=== PATIENT | female | born 1940 | race Caucasian/White ===

== ENCOUNTER 2023-04-25 17:22 | Inpatient (IN) | payer MEDICARE, OTHER ==
[~2023-04-25] VITALS: Ht 165.1 cm; Wt 60.8 kg
[2023-04-25] MEDS ORDERED: METO-358 PO (18:25)
[2023-04-25] MEDS ORDERED: DOCU100C36 PO (18:25)
[2023-04-25] MEDS ORDERED: NA P133E RC (18:25)
[2023-04-25] MEDS ORDERED: BISA10SU11 RC (18:25)
[2023-04-25] MEDS ORDERED: MULT-213 PO (18:25)
[2023-04-25] MEDS ORDERED: GABA-532 PO (18:25)
[2023-04-25] MEDS ORDERED: LEVO175T7 PO (18:25)
[2023-04-25] MEDS ORDERED: BUSP10TA35 PO (18:25)
[2023-04-25] MEDS ORDERED: MAGN400O6 PO (18:25)
[2023-04-25] MEDS ORDERED: ACET-868 PO (18:25)
[2023-04-25] MEDS ORDERED: VIT1CAPS44 PO (18:25)
[2023-04-25] MEDS ORDERED: TRAZ-257 PO (18:25)
[2023-04-25 19:02] LABS: BASOPHILS % (AUTO) 0.4 % (0.0-2.0); EOSINOPHILS # (AUTO) 0.1 K/uL (0.0-0.7); HEMATOCRIT 36 % (33-45); HEMOGLOBIN 12.2 g/dL (11.5-14.8); LYMPHOCYTES # (AUTO) 0.8 K/uL (0.8-4.8); LYMPHOCYTES % (AUTO) 10.7 % (20.0-44.0); MEAN CORPUSCULAR HEMOGLOBIN 31 PG (26.0-33.0); MEAN CORPUSCULAR HGB CONC 34 g/dl (31.0-36.0); MEAN CORPUSCULAR VOLUME 91 fL (82-100); MONOCYTES # (AUTO) 0.4 K/uL (0.1-1.30); MONOCYTES % (AUTO) 5.6 % (2.0-12.0); NEUTROPHILS # (AUTO) 6.1 K/uL (1.8-8.9); NEUTROPHILS % (AUTO) 82.3 % (43.0-81.0); PLATELET COUNT (AUTO) 223 K/uL (150-450); RED BLOOD CELL COUNT(AUTO) 4.01 MIL/uL (4.0-5.2); WHITE BLOOD COUNT (AUTO) 7.4 K/uL (4.3-11.0)
[2023-04-25 19:23] LABS: CALCIUM, SERUM 9.7 mg/dL (8.5-10.1); CARBON DIOXIDE 27 mmol/L (21-32); CHLORIDE 101 mmol/L (98-107); CREATININE 0.9 mg/dL (0.6-1.3); GLUCOSE 107 mg/dL (74-106); POTASSIUM 3.9 mmol/L (3.5-5.1); SODIUM SERUM 138 mmol/L (136-145); UREA NITROGEN, BLOOD 19 mg/dL (7-18)
[2023-04-25 19:38] LABS: ALANINE AMINOTRANSFERASE 16 U/L (12-78); ALBUMIN 3.7 g/dL (3.4-5.0); ALKALINE PHOSPHATASE 71 U/L (46-116); ASPARTATE AMINOTRANSFERASE 19 U/L (15-37); BILIRUBIN,DIRECT 0.1 mg/dL (0.0-0.2); BILIRUBIN,TOTAL 0.5 mg/dL (0.2-1.0); NT-PRO BNP 1078 pg/mL (0-125); TOTAL PROTEIN, SERUM 6.9 g/dL (6.4-8.2)
[2023-04-25] MEDS ORDERED: Z GUARD REMEDY 4 OZ OINT TP PRN (21:30)
[2023-04-25] MEDS ORDERED: MORPHINE SULFATE INJ 2 MG/ML DISP.SYRIN IV PRN (21:30)
[2023-04-25] MEDS ORDERED: ONDANSETRON HCL/PF 4 MG/2 ML VIAL IVP PRN (21:30)
[2023-04-25] MEDS ORDERED: hydrALAZINE HCL IV 20 MG VIAL IV PRN (21:30)
[2023-04-25 22:40] VITALS: BP 121/68; TEMP 98.6; O2SAT 96
[2023-04-26] VITALS (7 sets, daily range): BP systolic 91–147; BP diastolic 56–90; TEMP 97.6–98.4; O2SAT 96–99
[2023-04-26] MEDS: LEVOTHYROXINE SODIUM 175 MCG TABLET PO SCH (07:45)
[2023-04-26] MEDS: HEPARIN SODIUM, PORCINE 5000 UNITS/1 ML VIAL SQ SCH (09:00)
[2023-04-26] MEDS: METOPROLOL SUCCINATE 50 MG TAB.SR.24H PO SCH (09:00)
[2023-04-26] MEDS: POLYETHYLENE GLYCOL 3350 17 GM POWD.PACK PO SCH (09:00)
[2023-04-26] MEDS: DOCUSATE SODIUM LIQ 100 MG/10 ML UDC PO SCH (09:00)
[2023-04-26] MEDS: GABAPENTIN 100 MG CAPSULE PO SCH (09:00)
[2023-04-26] MEDS: busPIRone 5 MG TABLET PO SCH (09:00)
[2023-04-26] MEDS: TRAZODONE 50 MG TABLET PO SCH (21:24)
[2023-04-27] VITALS: BP 132/70; TEMP 98.1; O2SAT 99
[2023-04-27 04:00] VITALS: BP 139/76; TEMP 98.2; O2SAT 99
[2023-04-27 07:00] VITALS: BP_SYST 121; BP_SYST 129; BP_DIAS 104; BP_DIAS 77; TEMP 98.4; TEMP 98.6; O2SAT 96; O2SAT 97
[2023-04-27 12:00] VITALS: BP 119/66; TEMP 98.4; O2SAT 97
[2023-04-27 16:00] VITALS: BP 131/72; TEMP 98.2; O2SAT 98
[2023-04-27 20:00] VITALS: BP 124/80; TEMP 97.7; O2SAT 96
[2023-04-27] MEDS: ACETAMINOPHEN 325 MG TABLET PO PRN (23:34)
[2023-04-28 07:00] VITALS: BP 131/86; TEMP 97.5; O2SAT 97
[2023-04-28 16:00] VITALS: BP 152/79; TEMP 97.2
[2023-04-28 20:00] VITALS: BP 151/87; TEMP 97.9; O2SAT 96
[2023-04-29 08:00] VITALS: BP 133/78; TEMP 98; O2SAT 96
[2023-04-29 09:27] VITALS: BP 133/78
== END 2023-04-29 14:36 | DRG 641 ==
LOC: ER 17:40 → TELE 22:06 → MED 04-27 16:38
PROVIDERS: ADMIT Internal Medicine; ATTEND Nurse Practitioner Acute Care
DX: E86.0 Dehydration (principal); G93.40 Encephalopathy, unspecified; F03.94 Unspecified dementia, unspecified severity, with anxiety; R55 Syncope and collapse; I48.91 Unspecified atrial fibrillation; I10 Essential (primary) hypertension; W19.XXXA Unspecified fall, initial encounter; Y92.129 Unspecified place in nursing home as the place of occurrence of the external cause; Z87.11 Personal history of peptic ulcer disease; K21.9 Gastro-esophageal reflux disease without esophagitis; E03.9 Hypothyroidism, unspecified; Z79.890 Hormone replacement therapy; Z79.899 Other long term (current) drug therapy; Z91.81 History of falling; R79.89 Other specified abnormal findings of blood chemistry; S00.03XA Contusion of scalp, initial encounter
CPT/HCPCS: 36415; 70450-TC; 70486-TC; 71045-TC; 72125-TC; 80048-TC; 80076-TC; 82962-TC; 83605-TC; 83880; 84484-TC; 85025-TC; 87081-TC; 93307-TC; 97110-TC; 97112-TC; 97116-TC; 97530-TC; 97535-TC; G0378; J1644

== ENCOUNTER 2023-12-21 00:31 | Inpatient (IN) | payer MEDICARE, OTHER ==
[~2023-12-21] VITALS: Ht 165.1 cm; Wt 54.7 kg
[~2023-12-21 00:31] MED LIST: ACET-868 PO; BISA10SU11 RC; BUSP10TA35 PO; DOCU100C36 PO; GABA-532 PO; LEVO175T7 PO; MAGN400O6 PO; METO-358 PO; MULT-213 PO; NA P133E RC; TRAZ-257 PO; VIT1CAPS44 PO
[2023-12-21] MEDS: IV NS 0.9% 1,000 ML BAG IV ONE (01:43)
[2023-12-21 01:52] LABS: BASOPHILS % (AUTO) 0.7 % (0.0-2.0); EOSINOPHILS % (AUTO) 0.5 % (0.0-6.0); HEMATOCRIT 33 % (33-45); HEMOGLOBIN 10.8 g/dL (11.5-14.8); LYMPHOCYTES # (AUTO) 1.4 K/uL (0.8-4.8); MEAN CORPUSCULAR HEMOGLOBIN 27 PG (26.0-33.0); MEAN CORPUSCULAR HGB CONC 33 g/dl (31.0-36.0); MEAN CORPUSCULAR VOLUME 82 fL (82-100); MONOCYTES # (AUTO) 0.8 K/uL (0.1-1.30); MONOCYTES % (AUTO) 15.7 % (2.0-12.0); NEUTROPHILS # (AUTO) 2.8 K/uL (1.8-8.9); NEUTROPHILS % (AUTO) 56.1 % (43.0-81.0); PLATELET COUNT (AUTO) 285 K/uL (150-450); RED BLOOD CELL COUNT(AUTO) 3.99 MIL/uL (4.0-5.2); RED CELL DISTRIBUTION WIDTH 15.7 % (11.5-15.0); WHITE BLOOD COUNT (AUTO) 5.1 K/uL (4.3-11.0)
[2023-12-21 02:06] LABS: CALCIUM, SERUM 9.1 mg/dL (8.5-10.1); CARBON DIOXIDE 28 mmol/L (21-32); CHLORIDE 104 mmol/L (98-107); GLUCOSE 107 mg/dL (74-106); SODIUM SERUM 141 mmol/L (136-145); UREA NITROGEN, BLOOD 29 mg/dL (7-18)
[2023-12-21 02:12] LABS: ALANINE AMINOTRANSFERASE 8 U/L (12-78); ALBUMIN 3.1 g/dL (3.4-5.0); ALKALINE PHOSPHATASE 71 U/L (46-116); ASPARTATE AMINOTRANSFERASE 10 U/L (15-37); BILIRUBIN,DIRECT 0.1 mg/dL (0.0-0.2); BILIRUBIN,TOTAL 0.3 mg/dL (0.2-1.0); LIPASE 40 U/L (16-77); TOTAL PROTEIN, SERUM 7.9 g/dL (6.4-8.2)
[2023-12-21 02:18] LABS: EOSINOPHILS % (MANUAL) 1 % (0-4); LYMPHOCYTES % (MANUAL) 23 % (16-48); MONOCYTES % (MANUAL) 16 % (0-11.0); NEUTROPHILS % (MANUAL) 60 (42-76); PLATELET ESTIMATE ADEQUATE
[2023-12-21] MEDS ORDERED: ACETAMINOPHEN 325 MG TABLET PO PRN (03:00)
[2023-12-21] MEDS ORDERED: BISACODYL SUPP (10 MG) 10 MG/SUPP.RECT SUPP.RECT RC PRN (03:00)
[2023-12-21] MEDS ORDERED: ONDANSETRON HCL/PF 4 MG/2 ML VIAL IVP PRN (03:00)
[2023-12-21] MEDS ORDERED: MAGNESIUM HYDROXIDE 30 ML UDC PO PRN (03:00)
[2023-12-21] MEDS ORDERED: MAG HYDROX/AL HYDROX/SIMETH 30 ML UDC PO PRN (03:00)
[2023-12-21] MEDS ORDERED: Z GUARD REMEDY 4 OZ OINT TP PRN (03:00)
[2023-12-21] MEDS: IV NS 0.9% 1,000 ML IV ONE (03:55)
[2023-12-21 04:00] VITALS: BP 100/59; TEMP 98.8; O2SAT 97
[2023-12-21] MEDS: LEVOTHYROXINE SODIUM 175 MCG TABLET PO SCH (07:30)
[2023-12-21 08:00] VITALS: BP 122/70; TEMP 97.7; O2SAT 95
[2023-12-21] MEDS: DOCUSATE SODIUM 100 MG CAPSULE PO SCH (08:17)
[2023-12-21] MEDS: GABAPENTIN 100 MG CAPSULE PO SCH (08:17)
[2023-12-21] MEDS: busPIRone 5 MG TABLET PO SCH (08:17)
[2023-12-21] MEDS: MULTIVITAMIN/LUTEIN/MINERALS 1 TAB PO SCH (08:17)
[2023-12-21] MEDS: MULTIVIT W/MINERALS 1 TAB TABLET PO SCH (08:17)
[2023-12-21] MEDS: PANTOPRAZOLE 40 MG VIAL IV SCH (08:30)
[2023-12-21] MEDS ORDERED: BUSP30TA2 PO (08:55)
[2023-12-21] MEDS ORDERED: LEVO200T8 PO (08:55)
[2023-12-21] MEDS ORDERED: FERR325T28 PO (08:55)
[2023-12-21 12:00] VITALS: BP 100/65; TEMP 98.8; O2SAT 97
[2023-12-21 20:00] VITALS: BP 114/81; TEMP 99; O2SAT 99
[2023-12-21] MEDS: TRAZODONE 50 MG TABLET PO SCH (22:00)
[2023-12-22 04:00] VITALS: BP 117/65; TEMP 98.1; O2SAT 99
[2023-12-22 07:06] LABS: BASOPHILS % (AUTO) 0.6 % (0.0-2.0); EOSINOPHILS # (AUTO) 0.1 K/uL (0.0-0.7); EOSINOPHILS % (AUTO) 2.4 % (0.0-6.0); HEMATOCRIT 31 % (33-45); HEMOGLOBIN 10.4 g/dL (11.5-14.8); LYMPHOCYTES # (AUTO) 1.4 K/uL (0.8-4.8); LYMPHOCYTES % (AUTO) 42.9 % (20.0-44.0); MEAN CORPUSCULAR HEMOGLOBIN 27 PG (26.0-33.0); MEAN CORPUSCULAR HGB CONC 34 g/dl (31.0-36.0); MEAN CORPUSCULAR VOLUME 82 fL (82-100); MONOCYTES # (AUTO) 0.4 K/uL (0.1-1.30); NEUTROPHILS # (AUTO) 1.4 K/uL (1.8-8.9); NEUTROPHILS % (AUTO) 41.1 % (43.0-81.0); PLATELET COUNT (AUTO) 265 K/uL (150-450); RED BLOOD CELL COUNT(AUTO) 3.81 MIL/uL (4.0-5.2); RED CELL DISTRIBUTION WIDTH 15.5 % (11.5-15.0); WHITE BLOOD COUNT (AUTO) 3.3 K/uL (4.3-11.0)
[2023-12-22 07:24] LABS: CARBON DIOXIDE 25 mmol/L (21-32); CHLORIDE 106 mmol/L (98-107); CREATININE 0.8 mg/dL (0.6-1.3); GLUCOSE 84 mg/dL (74-106); POTASSIUM 3.6 mmol/L (3.5-5.1); SODIUM SERUM 142 mmol/L (136-145); UREA NITROGEN, BLOOD 20 mg/dL (7-18)
[2023-12-22] MEDS ORDERED: IV NS 0.9% 1,000 ML IV PRN (10:30)
[2023-12-22 12:25] VITALS: BP 100/59; TEMP 98.8; O2SAT 97
[2023-12-22 20:00] VITALS: BP 111/62; TEMP 98.1; O2SAT 95
[2023-12-23 04:00] VITALS: BP 103/67; TEMP 98.8; O2SAT 95
[2023-12-23 08:00] VITALS: BP 127/80; TEMP 97.9; O2SAT 96
[2023-12-23 20:00] VITALS: BP 114/69; TEMP 98; O2SAT 95
[2023-12-24 07:19] LABS: BASOPHILS % (AUTO) 0.5 % (0.0-2.0); EOSINOPHILS # (AUTO) 0.1 K/uL (0.0-0.7); EOSINOPHILS % (AUTO) 3.1 % (0.0-6.0); HEMATOCRIT 30 % (33-45); LYMPHOCYTES # (AUTO) 1.5 K/uL (0.8-4.8); LYMPHOCYTES % (AUTO) 40.6 % (20.0-44.0); MEAN CORPUSCULAR HEMOGLOBIN 27 PG (26.0-33.0); MEAN CORPUSCULAR HGB CONC 33 g/dl (31.0-36.0); MEAN CORPUSCULAR VOLUME 81 fL (82-100); MONOCYTES # (AUTO) 0.5 K/uL (0.1-1.30); MONOCYTES % (AUTO) 12.9 % (2.0-12.0); NEUTROPHILS # (AUTO) 1.6 K/uL (1.8-8.9); NEUTROPHILS % (AUTO) 42.9 % (43.0-81.0); PLATELET COUNT (AUTO) 253 K/uL (150-450); RED BLOOD CELL COUNT(AUTO) 3.73 MIL/uL (4.0-5.2); RED CELL DISTRIBUTION WIDTH 15.1 % (11.5-15.0); WHITE BLOOD COUNT (AUTO) 3.7 K/uL (4.3-11.0)
[2023-12-24 07:31] LABS: CALCIUM, SERUM 9.7 mg/dL (8.5-10.1); CARBON DIOXIDE 27 mmol/L (21-32); CHLORIDE 105 mmol/L (98-107); CREATININE 0.7 mg/dL (0.6-1.3); GLUCOSE 101 mg/dL (74-106); POTASSIUM 3.6 mmol/L (3.5-5.1); SODIUM SERUM 141 mmol/L (136-145); UREA NITROGEN, BLOOD 24 mg/dL (7-18)
[2023-12-24 08:00] VITALS: BP 122/68; TEMP 97.5; O2SAT 97
[2023-12-24] MEDS: PANTOPRAZOLE 40 MG TABLET.DR PO SCH (08:07)
== END 2023-12-24 19:00 | DRG 640 ==
LOC: ER 00:46 → MEDSG1 02:44
PROVIDERS: ADMIT Internal Medicine; ATTEND Nurse Practitioner Acute Care
DX: E86.0 Dehydration (principal); E43 Unspecified severe protein-calorie malnutrition; G93.41 Metabolic encephalopathy; N17.0 Acute kidney failure with tubular necrosis; F03.93 Unspecified dementia, unspecified severity, with mood disturbance; R62.7 Adult failure to thrive; E87.1 Hypo-osmolality and hyponatremia; I11.0 Hypertensive heart disease with heart failure; I50.9 Heart failure, unspecified; Z87.11 Personal history of peptic ulcer disease; I48.91 Unspecified atrial fibrillation; F41.9 Anxiety disorder, unspecified; Z79.890 Hormone replacement therapy; Z79.899 Other long term (current) drug therapy; E86.1 Hypovolemia; E88.09 Other disorders of plasma-protein metabolism, not elsewhere classified; E03.9 Hypothyroidism, unspecified; F32.9 Major depressive disorder, single episode, unspecified; D63.8 Anemia in other chronic diseases classified elsewhere
CPT/HCPCS: 36415; 71045-TC; 80048-TC; 80076-TC; 83690-TC; 85025-TC; 92526; 92611-TC; A4223; G0378; J2470; J7030

== ENCOUNTER 2024-12-04 20:13 | Emergency (ER) | payer MEDICARE, OTHER ==
[~2024-12-04] VITALS: Ht 160 cm; Wt 54.4 kg
[~2024-12-04 20:13] MED LIST changes: -BUSP10TA35 PO; +BUSP30TA2 PO; +FERR325T28 PO; +FLUO15CR2 TP; -LEVO175T7 PO; +LEVO200T8 PO; -MAGN400O6 PO
[2024-12-04 21:43] VITALS: BP 130/87; TEMP 98.5; O2SAT 93
[2024-12-04 22:36] LABS: PLATELET COUNT (AUTO) 187 K/uL (150-450); RED BLOOD CELL COUNT(AUTO) 3.73 MIL/uL (4.0-5.2); RED CELL DISTRIBUTION WIDTH 17.2 % (11.5-15.0); WHITE BLOOD COUNT (AUTO) 10.6 K/uL (4.3-11.0)
[2024-12-04 22:42] LABS: CALCIUM, SERUM 9.1 mg/dL (8.5-10.1); CREATININE 1.0 mg/dL (0.6-1.3); SODIUM SERUM 139 mmol/L (136-145); UREA NITROGEN, BLOOD 34 mg/dL (7-18)
[2024-12-04 22:54] LABS: ASPARTATE AMINOTRANSFERASE 20 U/L (15-37); NT-PRO BNP 3532 pg/mL (0-125); TOTAL PROTEIN, SERUM 7.3 g/dL (6.4-8.2)
== END 2024-12-05 01:39 ==
LOC: ER 20:21
DX: Z00.8 Encounter for other general examination (principal); I10 Essential (primary) hypertension; F03.94 Unspecified dementia, unspecified severity, with anxiety; R07.9 Chest pain, unspecified; R06.02 Shortness of breath; Z79.899 Other long term (current) drug therapy; Z87.11 Personal history of peptic ulcer disease; Z95.0 Presence of cardiac pacemaker; Z86.79 Personal history of other diseases of the circulatory system; Z20.822 Contact with and (suspected) exposure to COVID-19
CPT/HCPCS: 36415; 71045-TC; 80048-TC; 80076-TC; 83880; 84484-TC; 85025-TC

== ENCOUNTER 2024-12-08 18:34 | Inpatient (IN) | payer MEDICARE, OTHER ==
[~2024-12-08] VITALS: Ht 167.6 cm; Wt 72.6 kg
[2024-12-08] MEDS ORDERED: BUDE0.5A4 IH (19:53)
[2024-12-08] MEDS ORDERED: BUSP15TA3 PO (19:53)
[2024-12-08] MEDS ORDERED: CHOLECALCIFEROL PO (19:53)
[2024-12-08] MEDS ORDERED: MAGN400O6 PO (19:53)
[2024-12-08] MEDS ORDERED: TRAZ-182 PO (19:53)
[2024-12-08] MEDS: IV NS 0.9% 500 ML BAG IV ONE (19:57)
[2024-12-08 20:20] LABS: PLATELET COUNT (AUTO) 210 K/uL (150-450); RED BLOOD CELL COUNT(AUTO) 3.84 MIL/uL (4.0-5.2); RED CELL DISTRIBUTION WIDTH 16.8 % (11.5-15.0); WHITE BLOOD COUNT (AUTO) 6.2 K/uL (4.3-11.0)
[2024-12-08 20:28] LABS: CALCIUM, SERUM 8.7 mg/dL (8.5-10.1); CREATININE 0.7 mg/dL (0.6-1.3); SODIUM SERUM 138 mmol/L (136-145); UREA NITROGEN, BLOOD 26 mg/dL (7-18)
[2024-12-08 20:34] LABS: ASPARTATE AMINOTRANSFERASE 19 U/L (15-37); TOTAL PROTEIN, SERUM 7.3 g/dL (6.4-8.2)
[2024-12-08 20:37] LABS: INR 1.07 (0.91-1.10); LACTIC ACID 1.1 mmol/L (0.4-2.0)
[2024-12-08 20:43] LABS: SERUM AMMONIA 32 umol/L (11-32)
[2024-12-08 20:58] LABS: APPEARANCE,URINE TURBID (CLEAR); BLOOD, URINE 1+ Ery/uL (NEGATIVE); LEUKOCYTE ESTERASE ,URINE 3+ (NEGATIVE); NITRITE, URINE POSITIVE (NEGATIVE); UGLUCOSE NEGATIVE (NEGATIVE)
[2024-12-08 21:04] LABS: ADD URINE CULTURE YES; SQUAMOUS EPITHELIAL CELL,UR 0-2 /HPF (None Seen)
[2024-12-08] MEDS ORDERED: MAGNESIUM HYDROXIDE 30 ML UDC PO PRN (22:00)
[2024-12-08] MEDS ORDERED: BISACODYL SUPP (10 MG) 10 MG/SUPP.RECT SUPP.RECT RC PRN (22:00)
[2024-12-08] MEDS ORDERED: ONDANSETRON HCL/PF 4 MG/2 ML VIAL IVP PRN (22:00)
[2024-12-08] MEDS ORDERED: ACETAMINOPHEN 325 MG TABLET PO PRN (22:00)
[2024-12-08] MEDS ORDERED: Z GUARD REMEDY 4 OZ OINT TP PRN (22:00)
[2024-12-08] MEDS ORDERED: MAG HYDROX/AL HYDROX/SIMETH 30 ML UDC PO PRN (22:00)
[2024-12-08] MEDS ORDERED: CEFTRIAXONE 1GM BAG (ER ONLY) 50 ML IV ONE (22:17)
[2024-12-08] MEDS: CEFTRIAXONE 1GM BAG (ER ONLY) 1 GM/50 ML PIGGYBACK IV ONE (22:19)
[2024-12-09] MEDS: TRAZODONE 50 MG TABLET PO SCH (00:31)
[2024-12-09] MEDS: ENOXAPARIN SODIUM 40 MG/0.4 ML DISP.SYRIN SQ SCH (00:32)
[2024-12-09] MEDS: IV NS 0.9% 1,000 ML IV PRN (01:36)
[2024-12-09 07:30] VITALS: BP 133/91; TEMP 98.1; O2SAT 98
[2024-12-09 07:51] LABS: CALCIUM, SERUM 8.8 mg/dL (8.5-10.1); CREATININE 0.8 mg/dL (0.6-1.3); PHOSPHORUS 3.0 mg/dL (2.5-4.9); SODIUM SERUM 137.0 mmol/L (136-145); UREA NITROGEN, BLOOD 22.0 mg/dL (7-18)
[2024-12-09 07:52] LABS: PLATELET COUNT (AUTO) 202 K/uL (150-450); RED BLOOD CELL COUNT(AUTO) 3.93 MIL/uL (4.0-5.2); RED CELL DISTRIBUTION WIDTH 17.6 % (11.5-15.0); WHITE BLOOD COUNT (AUTO) 5.3 K/uL (4.3-11.0)
[2024-12-09] MEDS: FLUOCINONIDE 0.05% 15 GM OINT..GM. TP SCH (09:00)
[2024-12-09] MEDS: METOPROLOL SUCCINATE 50 MG TAB.SR.24H PO SCH (09:30)
[2024-12-09] MEDS: MULTIVITAMIN/LUTEIN/MINERALS 1 TAB PO SCH (09:30)
[2024-12-09] MEDS: PANTOPRAZOLE 40 MG TABLET.DR PO SCH (09:32)
[2024-12-09] MEDS: FERROUS SULFATE (325 MG) 325 MG/TAB TABLET PO SCH (09:32)
[2024-12-09] MEDS: DOCUSATE SODIUM 100 MG CAPSULE PO SCH (09:32)
[2024-12-09] MEDS: GABAPENTIN 100 MG CAPSULE PO SCH (09:32)
[2024-12-09] MEDS: LEVOTHYROXINE SODIUM 75 MCG TABLET PO SCH (09:53)
[2024-12-09] MEDS: LEVOFLOXACIN 500 MG /D5W 100ML 500 MG in PREMIX 1 EA IV SCH (09:54)
[2024-12-09] MEDS: BUDESONIDE RESPULE INH 0.5 MG/2 ML AMPUL.NEB IH SCH (10:00)
[2024-12-09 10:01] VITALS: O2SAT 98
[2024-12-09 10:16] VITALS: O2SAT 98
[2024-12-09 11:36] LABS: EOSINOPHILS % (MANUAL) 20 % (0-4); LYMPHOCYTES % (MANUAL) 15 % (16-48); MONOCYTES % (MANUAL) 8 % (0-11.0); NEUTROPHILS % (MANUAL) 57 (42-76); PLATELET ESTIMATE ADEQUATE
[2024-12-09 16:14] VITALS: BP 132/93; TEMP 97.3; O2SAT 100
[2024-12-09] MEDS ORDERED: MINERAL OIL/PETROL OINT 396 GM JAR TP PRN (19:00)
[2024-12-09 20:00] VITALS: BP 144/88; TEMP 98.4; O2SAT 96
[2024-12-10 07:30] VITALS: BP 163/93; TEMP 98.1; O2SAT 94
[2024-12-10 07:30] LABS: PLATELET COUNT (AUTO) 194 K/uL (150-450); RED BLOOD CELL COUNT(AUTO) 4.05 MIL/uL (4.0-5.2); RED CELL DISTRIBUTION WIDTH 17.6 % (11.5-15.0); WHITE BLOOD COUNT (AUTO) 3.8 K/uL (4.3-11.0)
[2024-12-10 07:47] LABS: CALCIUM, SERUM 8.9 mg/dL (8.5-10.1); SODIUM SERUM 143.0 mmol/L (136-145)
[2024-12-10 08:08] LABS: CREATININE 0.8 mg/dL (0.6-1.3); UREA NITROGEN, BLOOD 18.0 mg/dL (7-18)
[2024-12-10] MEDS: LEVOFLOXACIN (250MG) 250 MG TABLET PO SCH (09:18)
[2024-12-10 11:51] LABS: EOSINOPHILS % (MANUAL) 42 % (0-4); LYMPHOCYTES % (MANUAL) 13 % (16-48); MONOCYTES % (MANUAL) 1 % (0-11.0); NEUTROPHILS % (MANUAL) 44 (42-76)
[2024-12-10 11:52] LABS: PLATELET ESTIMATE ADEQUATE
[2024-12-10 16:00] VITALS: BP 140/104; TEMP 98.1; O2SAT 98
[2024-12-10 20:00] VITALS: BP 147/94; TEMP 97.9; O2SAT 95
[2024-12-11 07:10] LABS: PLATELET COUNT (AUTO) 206 K/uL (150-450); RED BLOOD CELL COUNT(AUTO) 4.15 MIL/uL (4.0-5.2); RED CELL DISTRIBUTION WIDTH 17.3 % (11.5-15.0); WHITE BLOOD COUNT (AUTO) 4.2 K/uL (4.3-11.0)
[2024-12-11 07:23] LABS: CALCIUM, SERUM 9.0 mg/dL (8.5-10.1); CREATININE 0.9 mg/dL (0.6-1.3); SODIUM SERUM 144.0 mmol/L (136-145); UREA NITROGEN, BLOOD 18.0 mg/dL (7-18)
[2024-12-11 08:00] VITALS: BP 154/96; TEMP 97.9; O2SAT 94
[2024-12-11 08:37] VITALS: BP 154/96
[2024-12-11 09:35] VITALS: O2SAT 99
[2024-12-11 09:45] VITALS: O2SAT 99
[2024-12-11] MEDS ORDERED: MEGE400O5 PO (12:55)
[2024-12-11] MEDS ORDERED: LEVO75TA PO (12:55)
[2024-12-11] MEDS ORDERED: LEVO250T59 PO (12:55)
[2024-12-11] MEDS ORDERED: PANT40TA49 PO (12:55)
== END 2024-12-11 16:03 | DRG 640 ==
LOC: ER 18:53 → TELE 22:09 → MED 23:11
PROVIDERS: ADMIT Registered Nurse Psychiatric/Mental Health; ATTEND Nurse Practitioner Acute Care
DX: E86.0 Dehydration (principal); G93.41 Metabolic encephalopathy; N39.0 Urinary tract infection, site not specified; E44.0 Moderate protein-calorie malnutrition; F03.93 Unspecified dementia, unspecified severity, with mood disturbance; F03.94 Unspecified dementia, unspecified severity, with anxiety; J90 Pleural effusion, not elsewhere classified; Z66 Do not resuscitate; Z51.5 Encounter for palliative care; F32.9 Major depressive disorder, single episode, unspecified; D64.9 Anemia, unspecified; E03.9 Hypothyroidism, unspecified; I11.9 Hypertensive heart disease without heart failure; M19.90 Unspecified osteoarthritis, unspecified site; Z78.1 Physical restraint status; H26.9 Unspecified cataract; E88.09 Other disorders of plasma-protein metabolism, not elsewhere classified; I48.91 Unspecified atrial fibrillation; Z95.0 Presence of cardiac pacemaker; Z87.11 Personal history of peptic ulcer disease; Z79.51 Long term (current) use of inhaled steroids; Z79.890 Hormone replacement therapy; Z79.899 Other long term (current) drug therapy; B96.89 Other specified bacterial agents as the cause of diseases classified elsewhere; R79.89 Other specified abnormal findings of blood chemistry; G62.9 Polyneuropathy, unspecified
CPT/HCPCS: 36415; 71045-TC; 80048-TC; 80076-TC; 81001; 82140-TC; 82962-TC; 83605-TC; 83690-TC; 83735-TC; 84100-TC; 84443-TC; 84484-TC; 85025-TC; 85027-TC; 85730-TC; 87040-TC; 87081-TC; 87086-TC; 94799-TC; A4216; A4223; G0378; J0696; J1650; J1956; J7030